=== PATIENT | male | born 1950 | race Caucasian/White ===

== ENCOUNTER 2017-02-26 13:22 | Emergency (ER) | payer OTHER, MEDICARE ==
[~2017-02-26] VITALS: Ht 180.3 cm; Wt 136.4 kg
[2017-02-26] MEDS ORDERED: Ondansetron 2 mg/mL 2 mL Inj IVPUSH ONE (13:35)
[2017-02-26] MEDS ORDERED: Lidocaine-Epi-Tetracaine Solution 3 mL Syringe TOPICAL ONE (13:35)
[2017-02-26] MEDS ORDERED: Lidocaine 2% 5 mL Topical Jelly TOPICAL ONE (13:35)
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
[2017-02-26 13:45] LABS: BASOPHILS % (AUTO) 0.4 % (0-3); MONOCYTES % (AUTO) 7.2 % (4-12); Mean Corpuscular Volume 90.6 fL (81-100); NEUTROPHILS % (AUTO) 50.4 % (40-74); Platelet Count 212 bil/L (150-400)
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
[2017-02-26] MEDS: fentaNYL-PF 50 mCg/mL 2 mL Inj IVPUSH PRN ×3 (14:42→16:45)
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
--- NOTE | 2017-02-26 15:29 | DRSVH ---
PROCEDURE: CT CHEST, ABDOMEN AND PELVIS WITH CONTRAST ([id number]) INDICATIONS: trauma TECHNIQUE: After the administration of intravenous contrast, 5 mm thick sections acquired from the lung apices t o the symphysis. 5 mm thick coronal and sagittal reformats were acquired. Additional 7 mm thick cor onal maximum intensity projection (MIP) reformats acquired through the lungs. Optional 10-minute del ayed imaging may be performed from the kidneys to the bladder. For radiation dose reduction, the fol lowing was used: automated exposure control, adjustment of mA and/or kV according to patient size. COMPARISON: None. FINDINGS: Image quality: Excellent. CHEST: Lungs: There is a trace intermediate density pleural fluid collection which likely represents a small hemothorax. No pneumothorax. No pulmonary contusion. Dependent atelectasis is present in the right l jamal. Mediastinum: No mediastinal hematomas. Heart size is normal. No pericardial effusion. Thoracic ao rta and pulmonary arteries demonstrate normal size and enhancement. No mediastinal or hilar adenopat hy. Esophagus is normal in caliber. No hiatal hernia. Chest wall: Patient is status post median sternotomy. There is a buckle fracture of the lateral aspec t of the right third rib. There are displaced posterior and lateral fractures of the right fourth, fi fth, sixth, and eighth ribs. There is a displaced, comminuted posterior seventh rib fracture. No subc utaneous emphysema. No axillary or supraclavicular adenopathy. Thyroid gland is unremarkable. ABDOMEN: Solid organs: The liver demonstrates overall homogeneous enhancement; however evaluation is limited d ue to streak artifact from the adjacent arms. There is trace perihepatic intermediate density fluid o ff the inferior margin of the liver consistent with small perihepatic hematoma. No definite laceratio n visualized. The spleen demonstrates normal size and enhancement. No perisplenic fluid or laceration . The pancreas demonstrates normal size and enhancement. The adrenal glands demonstrate normal size a nd enhancement. No adrenal hematomas. The kidneys are mildly atrophic. There is a high density 5.2 x 2.6 cm right subcapsular hematoma. No definite renal laceration is visualized; however this is a limi kiko study given patient body habitus and streak artifact from the arms. No left renal injury. There i s an intermediate density exophytic left lower pole renal cystic lesion. No hydronephrosis. The urete rs demonstrate normal course and caliber. Peritoneum and bowel: A gastric laparoscopic band is present. Trace low-density free fluid is present within the pelvis. Unenhanced bowel loops demonstrate normal wall thickness and caliber. The append ix is thin walled and gas filled. Nodes and vessels: No retroperitoneal or mesenteric adenopathy. Aorta and inferior vena cava are no rmal in size and enhancement. Scattered atheromatous calcifications are present throughout the abdom inal aorta. Miscellaneous: No ventral hernias. PELVIS: Genitourinary: Bladder wall thickness is normal. Miscellaneous: No inguinal adenopathy. There is a small left fat-containing inguinal hernia. Bones: Pelvic ring and hip joints appear intact. No vertebral compression fractures. 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 There is a minimally displaced fracture of the inferior right scapular body. IMPRESSION: 1. Multiple right rib fractures, many of which fractured both posteriorly and laterally as described above. 2. Trace hemothorax. 3. Small amount of high density inferior perihepatic free fluid suggesting hepatic injury. No definit e laceration visualized; however the study is limited given patient body habitus and streak artifact from the patient's lowered upper extremities. 4. Right subcapsular perinephric hematoma. No definite renal laceration visualized; however this is a limited study. Renal laceration cannot be excluded. These findings were discussed with Dr. Cloud at 3:18 PM on 02/26/17. 5. Intermediate density left renal cystic lesion. Nonemergent renal ultrasound a renal mass protocol CT recommended to exclude cystic neoplasm. 6. Minimally displaced inferior right scapular body fracture. Dictated by: Ana Paula Dickson M.D. on 02/26/2017 at 15:07 Approved by: Ana Paula Dickson M.D. on 02/26/2017 at 15:28
[2017-02-26 15:57] VITALS: BP 123/74; PULSE 104; RESP 16; O2SAT 97
[2017-02-26 16:58] LABS: INR 1.02 ratio
[2017-02-26 17:49] VITALS: BP 125/78; PULSE 102; RESP 20; O2SAT 99
== END 2017-02-26 17:51 | disposition short-term general hospital (02) ==
LOC: SED 13:22 → EDBD 13:22 → SED 17:51
DX: S22.31XA Fracture of one rib, right side, initial encounter for closed fracture (principal); S36.113A Laceration of liver, unspecified degree, initial encounter; S12.590A Other displaced fracture of sixth cervical vertebra, initial encounter for closed fracture; S60.222A Contusion of left hand, initial encounter; S12.690A Other displaced fracture of seventh cervical vertebra, initial encounter for closed fracture; S42.91XA Fracture of right shoulder girdle, part unspecified, initial encounter for closed fracture; S00.31XA Abrasion of nose, initial encounter; N15.1 Renal and perinephric abscess; V20.4XXA Motorcycle driver injured in collision with pedestrian or animal in traffic accident, initial encounter; Y93.89 Activity, other specified; Y92.410 Unspecified street and highway as the place of occurrence of the external cause; Y99.8 Other external cause status; I10 Essential (primary) hypertension; I25.10 Atherosclerotic heart disease of native coronary artery without angina pectoris; Z95.1 Presence of aortocoronary bypass graft; Z88.5 Allergy status to narcotic agent; Z88.6 Allergy status to analgesic agent
CPT/HCPCS: 36415; 70450; 71010; 71260; 72125; 73030; 73090; 73130; 74177; 80053; 85014; 85018; 85025; 85610; 86850; 86922; 96361; 96374; 96375; 99285; G0390; G0480; J2405; J3010; Q9967